=== PATIENT | female | born 1960 | race Asian ===

== ENCOUNTER 2021-03-03 13:29 | Emergency (ER) | payer OTHER ==
[2021-03-03 14:20] VITALS: BP 165/99; PULSE 68; RESP 18; TEMP 98.2
[2021-03-03] MEDS ORDERED: LIDOCAINE 1% INJ 10MG/ML (20 ML MDV) SQ STA (14:45)
--- NOTE | 2021-03-03 15:14 | ED ---
General Adult HPI - General Chief complaint: Wound/Laceration Stated complaint: [facility] - finger injury Time Seen by Provider: 03/03/21 14:40 Source: patient, RN notes reviewed Mode of arrival: ambulatory Limitations: no limitations - History of Present Illness Initial comments: Patient is a 60-year-old female presented to the emergency room today with chief complaint of a injury to the left index.. She does admit that she was at work. She was using a sewing machine when the [id number] ice to her finger and it is embedded at the tip of the left index ear. She states her tetanus is up-to-date. Doesn't pain locally. Denies any other complains or any other symptoms. - Related Data Previous Rx's Medication Instructions Recorded Amoxicillin/Potassium Clav 1 each PO Q12HR #20 tab 03/03/21 [Augmentin 875-125 Tablet] Allergies Allergy/AdvReac Type Severity Reaction Status Date / Time No Known Allergies Allergy Verified 03/03/21 14:21 Review of Systems ROS Statement: Those systems with pertinent positive or pertinent negative responses have been documented in the HPI. ROS Other: All systems not noted in ROS Statement are negative. Past Medical History Past Medical History: No Reported History History of Any Multi-Drug Resistant Organisms: None Reported Past Surgical History: No Surgical Hx Reported Past Psychological History: No Psychological Hx Reported Smoking Status: Never smoker Past Alcohol Use History: None Reported Past Drug Use History: None Reported General Exam - General Exam Comments Initial Comments: General: The patient is awake and alert, in no distress, and does not appear acutely ill. Neck: The neck is supple Respiratory: respirations are non-labored, breath sounds are equal. Musculoskeletal: Patient has full range of motion. There is a sewing needle at the tip of the left index finger. Cap refill is 2 seconds with sensations intact. /5. Neurological: A&O x 3. CN II-XII intact, There are no obvious motor or sensory deficits. Coordination appears grossly intact. Speech is normal. Skin: There is the tip of the swelling that is visualized at the tip of left index finger volar aspect. Psychiatric: Normal mood and affect. Limitations: no limitations Course Vital Signs 03/03/21 14:17 Temperature 98.2 F Pulse Rate 68 Respiratory 18 Rate Blood Pressure 165/99 O2 Sat by Pulse 99 Oximetry Medical Decision Making - Medical Decision Making Patient's did have part of a sewing needle that was visualized here in emergency room this was pulled out and the top portion of the needle was removed. The daughter then stated that there was a piece that was pulled out at work. X-rays obtained showing 2 small pieces remaining. At this time patient will be advised to follow-up with hand specialist for further evaluation and possible removal of these pieces. Will be started on antibiotics. Tetanus is up-to-date. 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 Disposition Clinical Impression: Puncture wound, Foreign body (FB) in soft tissue Disposition: HOME SELF-CARE Condition: Stable Additional Instructions: Please follow-up with the orthopedic doctor over the next 2 days. Return here to emergency room if any symptoms increase worsen or for any other concerns. Use antibiotic as prescribed. Prescriptions: Amoxicillin/Potassium Clav [Augmentin 875-125 Tablet] 1 each PO Q12HR #20 tab Is patient prescribed a controlled substance at d/c from ED?: No Referrals: Justin Cuadra DO [Primary Care Provider] - 1-2 days Hudson Dick DO [Doctor of Osteopathic Medicine] - 1-2 days Time of Disposition: 15:43
--- NOTE | 2021-03-03 15:39 | XR ---
EXAMINATION TYPE: XR finger LT DATE OF EXAM: 03/03/2021 COMPARISON: NONE HISTORY: Penetrating injury with pain TECHNIQUE: 3 views left second finger. FINDINGS: No acute fracture or dislocation is seen. Joint spaces are maintained. In the radial soft t issue there are 2 punctate foreign bodies distal level of the second distal phalanx noted. IMPRESSION: As above.
== END 2021-03-03 16:02 | disposition home or self-care (01) ==
LOC: EC 13:29
DX: S61.241A Puncture wound with foreign body of left index finger without damage to nail, initial encounter (principal); W27.3XXA Contact with needle (sewing), initial encounter
CPT/HCPCS: 99284; 73140; J2001